=== PATIENT | male | born 1990 | race Caucasian/White ===

== ENCOUNTER 2023-08-28 00:36 | Inpatient (IN) ==
--- NOTE | 2023-08-28 01:17 | Emergency Department Note ---
Impression & Plan Suicide attempt by hanging, Suicidal behavior ED Provider Note CHIEF COMPLAINT: Attempted suicide, hanging HISTORY OF PRESENT ILLNESS: This 32-year-old male patient past medical history of depression presents to the emergency department after an attempted hanging. The patient states he tried to hang himself from a tree branch this evening. He states he [place] the [place], used a rope as a ligature. He states the tree branch broke just as he was ready to "pass out." Patient states he did urinate "a little." Patient states he has been taking about suicide for about the last month. He is not currently under any mental health treatment. Patient states he was admitted for inpatient psychiatric care when he was younger. He denies any alcohol ingestion or medicine overdose. REVIEW OF SYSTEMS: A review of systems was performed with positives and pertinent negatives listed in the history of present illness. 10 systems were reviewed and are otherwise negative. ALLERGIES: see below MEDICATIONS: see below PMH: see below SOCIAL HISTORY: see below DDx: Cervical spine injury, vascular injury, tracheal injury, mood disorder, toxic ingestion, among others PHYSICAL EXAM: Vital signs reviewed. General: Well-appearing 32 yo male, in no significant distress. HEENT: No scleral icterus, PERRLA, neck supple. Erythematous ligature eliza around the base of the neck. Bifurcated uvula Cardiovascular: Regular rate and rhythm, no extra sounds. Pulmonary: Clear to auscultation bilaterally, normal work of breathing. Abdomen: Soft, nontender, nondistended, positive bowel sounds. Musculoskeletal: Atraumatic, no peripheral edema. No step-off or deformity along cervical spine, generally nontender Neurologic: Patient awake alert and oriented x 3, speech is clear Psychiatric: Positive SI with attempt, negative HI Skin: Warm, dry, ligature eliza as above. EMERGENCY DEPARTMENT COURSE/MDM: This patient was evaluated and appeared to be in no significant distress. Patient's physical examination is consistent with ligature/attempted hanging. CT angiogram of the neck was performed and is negative per radiology. He has remained stable on room air. The patient was medically cleared and referred to the mental health hospice case manager for evaluation. The patient was then referred to [facility] for inpatient psychiatric care. Patient has been accepted to their unit and is awaiting a bed assignment. RADIOLOGY: CT angiogram of the neck per radiology is negative for acute findings. Please see the read below EKG: To my interpretation reveals normal sinus rhythm at [address] segments. QTc 374. No PVC, no PAC. No previous for comparison DISPOSITION: Admission Past Med/Surg History Social History Smoking Status: Never smoker Feels Safe at Home: Yes Gender Identity: Male Allergies Allergies Allergy/AdvReac Type Severity Reaction Status Date / Time No Known Allergies Allergy Unverified 08/28/23 01:54 Home Meds Home Medications Medication Instructions Recorded Confirmed No Known Home Medications 08/28/23 08/28/23 Results & Data (ED) Vital Signs Vital Signs - 24 hr 08/28/23 00:39 08/28/23 02:54 Temperature 36.9 C Temperature Source Temporal Artery Scan Pulse Rate 88 Pulse Rate [Finger] 62 Pulse Rhythm Regular Pulse Strength Normal Respiratory Rate 18 19 Respiratory Effort / Characteristics Non-Labored Spontaneous Non-Labored Respiratory Depth Normal Normal Respiratory Pattern Regular Blood Pressure 142/83 H Blood Pressure [Left Arm] 106/52 L Blood Pressure Mean 102 Blood Pressure Mean [Left Arm] 70 Pulse Oximetry 94 96 Oxygen Delivery Method Room Air Room Air Sepsis Recent Fever Within 48 Hours No Sepsis New/Unexplained Change in Mental Status N/A Sepsis Action Taken by Nursing No Action Required Home Medications Current Medication List: was personally reviewed by me Laboratory Data Attestation: I reviewed the patient's lab results. 08/28/23 00:55 08/28/23 00:55 Lab Results 08/28/23 08/28/23 Range/Units 00:55 00:56 WBC 12.27 H (4.8-10.8) K/ul RBC 5.78 (4.70-6.10) M/uL Hgb 16.7 (14.0-18.0) g/dl Hct 49.7 (42.0-52.0) % MCV 86.0 (80.0-100.0) fL MCH 28.9 (25.0-34.0) pg MCHC 33.6 (32.0-36.0) g/dL RDW Std Deviation 38.2 (36.4-46.3) fL RDW Coeff of Jd 12.3 (11.5-14.5) % Plt Count 320 (130-400) K/uL MPV 9.7 (9.4-12.4) fL Immature Gran % (Auto) 0.4 % Neut % (Auto) 59.3 % Lymph % (Auto) 26.5 % [place] % (Auto) 10.3 % Eos % (Auto) 2.9 % Baso % (Auto) 0.6 % Neut # (Auto) 7.29 H (1.40-6.50) K/uL Lymph # (Auto) 3.25 (1.20-3.40) K/uL [place] # (Auto) 1.26 H (0.11-0.59) K/uL Eos # (Auto) 0.35 (0.00-0.50) K/uL Baso # (Auto) 0.07 (0.00-0.20) K/uL Immature Gran # (Auto) 0.05 (0.01-0.20) K/uL Sodium 138 (136-145) mmol/L Potassium 3.8 (3.5-5.1) mmol/L Chloride 105 (98-107) mmol/L Carbon Dioxide 25 (21-32) mmol/L Anion Gap 8 (3-11) BUN 10 (6-23) mg/dl Creatinine 1.05 (0.6-1.4) mg/dl Est Cr Clr Drug Dosing 136.9 ml/min Est GFR ( Amer) 109.1 ml/min Est GFR (Non-Af Amer) 94.1 ml/min BUN/Creatinine Ratio 9.5 L (10-20) Glucose 97 (70-99(Fasting)) mg/dl Calcium 9.3 (8.6-10.3) mg/dl Total Bilirubin 0.4 (0.2-1.0) mg/dl AST 20 (13-39) U/L ALT 16 (7-52) U/L Alkaline Phosphatase 59 (34-104) U/L Total Protein 7.5 (6.0-8.3) gm/dl Albumin 4.5 (3.4-5.0) gm/dl Globulin 3.0 (2.5-4.0) gm/dl Albumin/Globulin Ratio 1.5 (0.9-2) TSH 1.602 (0.300-4.500) uIu/ml Urine Color Dark Yellow Urine Appearance Clear (Clear) Urine pH 5.5 (4.5-7.5) Ur Specific [place] 1.027 (1.000-1.030) Urine Protein Negative (Negative) Urine Glucose (UA) Negative (Negative) Urine Ketones Trace H (Negative) Urine Blood Negative (Negative) Urine Nitrite Negative (Negative) Urine Bilirubin Negative (Negative) Urine Urobilinogen Negative (Negative) Ur Leukocyte Esterase Negative (Negative) Salicylates < 3.0 L (3.0-30) mg/dl Urine Opiates Screen Neg (Neg) Ur Methadone, Qual Neg (Neg) Acetaminophen < 3 L (10-30) ug/ml Urine Barbiturates Neg (Neg) Ur Phencyclidine (PCP) Neg (Neg) U Amphetamin/Meth Scrn Neg (Neg) MDMA (Ecstasy) Screen Neg (Neg) U Benzodiazepines Scrn Neg (Neg) Ur Cocaine Metabolite Neg (Neg) U Marijuana (THC) Screen Pos H (Neg) Ethyl Alcohol mg/dL < 10.0 (<10.0) mg/dl SARS-CoV-2, RNA, NAAT NEGATIVE (NEGATIVE) Administered Medications Discontinued Medications Ioversol (Optiray 320 125ml) 125 ml IV ONCE ONE Stop: 08/28/23 01:49 Last Admin: 08/28/23 01:48 Dose: 115 ml Documented By: RAMÍREZ Imaging Data Radiologist's Impression: Neck CTA 08/28/23 01:08 Exam(s): CTA NECK With Contrast IV Amt: 115 ML OPTIRAY 320 EXAM: CT Angiography Neck With Intravenous Contrast CLINICAL HISTORY: Reason for exam: attempted hanging, ligature fletcher, hoarse. TECHNIQUE: Routine carotid CT angiography protocol was performed with intravenous contrast. NASCET criteria using the distal ICAs for comparison were used for evaluation of stenoses. Automated exposure control was utilized for the study. A dose lowering technique was utilized adhering to the principles of ALARA. MIP reconstructed images were created and reviewed. CONTRAST: Patient received 115 ML OPTIRAY 320 of IV contrast COMPARISON: None. FINDINGS: VASCULATURE: Right common carotid artery: Unremarkable. No occlusion or significant stenosis. No dissection. Right internal carotid artery: Unremarkable. Extracranial segment is patent with no occlusion or significant stenosis. No dissection. Right external carotid artery: Unremarkable. No occlusion. Right vertebral artery: Unremarkable. No occlusion or significant stenosis. No dissection. Left common carotid artery: Unremarkable. No occlusion or significant stenosis. No dissection. Left internal carotid artery: Unremarkable. Extracranial segment is patent with no occlusion or significant stenosis. No dissection. Left external carotid artery: Unremarkable. No occlusion. Left vertebral artery: Unremarkable. No occlusion or significant stenosis. No dissection. NECK: Bones/joints: Unremarkable. No acute fracture. Soft tissues: Unremarkable. Lung apices: Clear. CAROTID STENOSIS REFERENCE USING NASCET CRITERIA: % ICA stenosis = (1 - narrowest ICA diameter/diameter of distal cervical ICA) x 100. Mild - <50% stenosis. Moderate - 50-69% stenosis. Severe - 70-94% stenosis. Near occlusion - 95-99% stenosis. Occluded - 100% stenosis. IMPRESSION: Negative CTA neck. Electronically signed by: Chase Valencia M.D. 08/28/23 02:17 AM Discharge Plan Visit Data Chief Complaint: Mental Health Evaluation Stated Complaint: TRIED TO HANG HIMSELF AT 0010,WANTS 201 EVAL ED Provider: Stephy Roberts Discharge Problem: Suicide attempt by hanging, Suicidal behavior Forms Stand Alone Forms: [facility], Suicide Prevention Resources Prescriptions Prescriptions: No Action No Known Home Medications Referrals Referrals: PCP,NO [Primary Care Provider] - Discharge Problem: Suicide attempt by hanging Qualifiers: Encounter type: initial encounter Qualified Code(s): T71.162A - Asphyxiation due to hanging, intentional self-harm, initial encounter Suicidal behavior Qualifiers: Attempted self-injury: with attempted self-injury Qualified Code(s): T14.91XA - Suicide attempt, initial encounter
[2023-08-28 01:31] LABS: Appearance Urine Clear (Clear); Basophils # (auto) 0.07 K/uL (0.00-0.20); Basophils % (auto) 0.6 %; Bilirubin Urine Negative (Negative); Blood Urine Negative (Negative); Color Urine Dark Yellow; Eosinophils # (auto) 0.35 K/uL (0.00-0.50); Eosinophils % (auto) 2.9 %; Glucose Urine UA Negative (Negative); Hematocrit (blood only) 49.7 % (42.0-52.0); Hemoglobin 16.7 g/dl (14.0-18.0); Immature Granulocytes # (auto) 0.05 K/uL (0.01-0.20); Immature Granulocytes % (auto) 0.4 %; Ketones Urine Trace (Negative); Leukocyte Esterase Urine Negative (Negative); Lymphocytes # (auto) 3.25 K/uL (1.20-3.40); Lymphocytes % (auto) 26.5 %; Mean Corpuscular Hemoglobin 28.9 pg (25.0-34.0); Mean Corpuscular Hgb Conc 33.6 g/dL (32.0-36.0); Mean Platelet Volume 9.7 fL (9.4-12.4); Monocytes # (auto) 1.26 K/uL (0.11-0.59); Monocytes % (auto) 10.3 %; Neutrophils # (auto) 7.29 K/uL (1.40-6.50); Neutrophils % (auto) 59.3 %; Nitrite Urine Negative (Negative); Platelet Count 320 K/uL (130-400); Protein Urine Negative (Negative); RDW Coefficient of Variation 12.3 % (11.5-14.5); RDW Standard Deviation 38.2 fL (36.4-46.3); Red Blood Count 5.78 M/uL (4.70-6.10); Specific Gravity Urine 1.027 (1.000-1.030); Urobilinogen Urine Negative (Negative); White Blood Count 12.27 K/ul (4.8-10.8); pH Urine 5.5 (4.5-7.5)
[2023-08-28] MEDS ORDERED: OPTIRAY 320 125ml IV ONE (01:48)
[2023-08-28 01:49] LABS: Albumin Globulin Ratio 1.5 (0.9-2); Albumin Level 4.5 gm/dl (3.4-5.0); BUN Creatinine Ratio 9.5 (10-20); Bilirubin,Total 0.4 mg/dl (0.2-1.0); Calcium 9.3 mg/dl (8.6-10.3); Creatinine Clr Calc Pharmacy 136.9 ml/min; Est GFR (African American) 109.1 ml/min; Est GFR (Non-African American) 94.1 ml/min; Potassium 3.8 mmol/L (3.5-5.1); Total Protein 7.5 gm/dl (6.0-8.3)
[2023-08-28 01:58] LABS: Acetaminophen < 3 ug/ml (10-30); Amphetamines+Metham, Urine Neg (Neg); Barbiturates, Urine Neg (Neg); Benzodiazepine, Urine Neg (Neg); Cocaine, Urine Neg (Neg); MDMA (Ecstacy), Urine Neg (Neg); Marijuana, Urine Pos (Neg); Methadone, Urine Neg (Neg); Opiate, Urine Neg (Neg); Phencyclidine, Urine Neg (Neg); Salicylate < 3.0 mg/dl (3.0-30)
[2023-08-28 02:04] LABS: Thyroid Stimulating Hormone 1.602 uIu/ml (0.300-4.500)
--- NOTE | 2023-08-28 02:18 | CT Scan Report ---
Exam(s): CTA NECK With Contrast IV Amt: 115 ML OPTIRAY 320 EXAM: CT Angiography Neck With Intravenous Contrast CLINICAL HISTORY: Reason for exam: attempted hanging, ligature fletcher, hoarse. TECHNIQUE: Routine carotid CT angiography protocol was performed with intravenous contrast. NASCET criteria using the distal ICAs for comparison were used for evaluation of stenoses. Automated exposure control was utilized for the study. A dose lowering technique was utilized adhering to the principles of ALARA. MIP reconstructed images were created and reviewed. CONTRAST: Patient received 115 ML OPTIRAY 320 of IV contrast COMPARISON: None. FINDINGS: VASCULATURE: Right common carotid artery: Unremarkable. No occlusion or significant stenosis. No dissection. Right internal carotid artery: Unremarkable. Extracranial segment is patent with no occlusion or significant stenosis. No dissection. Right external carotid artery: Unremarkable. No occlusion. Right vertebral artery: Unremarkable. No occlusion or significant stenosis. No dissection. Left common carotid artery: Unremarkable. No occlusion or significant stenosis. No dissection. Left internal carotid artery: Unremarkable. Extracranial segment is patent with no occlusion or significant stenosis. No dissection. Left external carotid artery: Unremarkable. No occlusion. Left vertebral artery: Unremarkable. No occlusion or significant stenosis. No dissection. NECK: Bones/joints: Unremarkable. No acute fracture. Soft tissues: Unremarkable. Lung apices: Clear. CAROTID STENOSIS REFERENCE USING NASCET CRITERIA: % ICA stenosis = (1 - narrowest ICA diameter/diameter of distal cervical ICA) x 100. Mild - <50% stenosis. Moderate - 50-69% stenosis. Severe - 70-94% stenosis. Near occlusion - 95-99% stenosis. Occluded - 100% stenosis. IMPRESSION: Negative CTA neck. Electronically signed by: Chase Valencia M.D. 08/28/23 02:17 AM
--- NOTE | 2023-08-28 09:14 | Emergency Department Note ---
ED Visit Note The patient was taken in signout from Dr. Roberts at the change of shift. Please see that note for details. The patient was pending admission to [facility] voluntarily secondary to suicidal attempt. Patient was evaluated by [facility] liaison. During the process of admission on voluntary basis the patient refused. He did ask to speak to the physician. I did meet with him. The patient has no support system. He does not have a treating therapist or psychologist. Patient does not have a psychiatrist. He is refusing admission. Patient had an active furtherance on his suicidal thoughts and also admitted texting multiple people to tell them that he was attempting. Despite a significant amount of time discussing the options the patient is adamantly refusing further mental health evaluation or inpatient treatment. He is agitated but directable. Security was notified and came to the bedside. Discussed with senior insight manager at length. As the patient is no longer voluntary and had a significant event further management in the hospital will be necessary. A 302 petition was generated and delegate contacted. Warrant granted and the 302 was signed. Patient was accepted to [facility] for further management. .
[2023-08-28] MEDS ORDERED: MAGNESIUM HYDROXIDE SUSP 30 ML UDC PO PRN (11:18)
[2023-08-28] MEDS ORDERED: SODIUM CHLORIDE 0.65% NA SOLN 45 ML (OCEAN) PRN (11:18)
[2023-08-28] MEDS ORDERED: BISMUTH SUBSALICYLATE LIQD 236 ML PO PRN (11:18)
[2023-08-28] MEDS ORDERED: ALUMINUM/MAGNESIUM SUSP 30 ML UDC PO PRN (11:18)
[2023-08-28] MEDS ORDERED: ACETAMINOPHEN 325 MG TAB PO PRN (11:18)
[2023-08-28] MEDS ORDERED: hydrOXYzine HCl 25 MG TAB PO PRN (11:18)
[2023-08-28] MEDS: NICOTINE 21 MG/24 HR TDSY TD SCH (12:11)
--- NOTE | 2023-08-28 12:43 | Electrocardiogram Report ---
Test Reason : Blood Pressure : / mmHG Vent. Rate : 060 BPM Atrial Rate : 060 BPM P-R Int : 182 ms QRS Dur : 094 ms QT Int : 374 ms P-R-T Axes : 064 063 044 degrees QTc Int : 374 ms Normal sinus rhythm Normal ECG No previous ECGs available Confirmed by Johnathon Murphy ([id number]) on 08/28/2023 12:42:50 PM Referred By: REFERRED SELF Confirmed By:Johnathon Murphy
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
[2023-08-28] MEDS ORDERED: HYDROCORTISONE 1% OINT 30 GM TUBE EXT PRN (14:17)
[2023-08-28] MEDS: ESCITALOPRAM OXALATE 10 MG TAB PO SCH (14:22)
[2023-08-28 15:26] LABS: Folate (Folic Acid),Ser orPlas 18.57 ng/ml (>5.38)
[2023-08-28] MEDS: hydrOXYzine HCl 25 MG TAB PO PRN (21:22)
[2023-08-29] MEDS: NICOTINE 21 MG/24 HR TDSY TD SCH (08:26)
[2023-08-29] MEDS: ESCITALOPRAM OXALATE 10 MG TAB PO SCH (08:26)
--- NOTE | 2023-08-29 09:51 | Psychiatric Progress Note ---
Date of Service August 29, 2023 Impression / Recommendations Impression 32 y/o M with history of mood and anxiety symptoms, OUD in remission admitted after a serious and nearly-lethal attempt to hang himself. He endorses symptoms and provides symptoms consistent with PTSD and has been treated as if he may have a bipolar condition, though he denies history of obey or even depressive episodes that would clearly meet criteria for major depressive episodes. He is clearly psychiatrically unstable and requires admission for safety, stabilization, medication, and formulation of a plan including psychotherapy and other resources upon discharge. 08/29/2023: Reviewed with pt additional labs indicating a mild vitamin D insufficiency and recommended treatment approach. He reports no longer feeling hopeless, especially after staff discussed aftercare plans with him. He has tolerated addition of escitalopram 5 mg now for 2 doses and would like to proceed with planned increase to 10 mg tomorrow. We eager to discuss a range of concerns and thoughts and was quite voluble in this. This did not present to me as manic but rather as indicating loneliness and isolation. 08/28/2023: Pt was initially voluntary then was admitted involuntarily after overreacting when told he couldn't wear a hat on the unit and demanding to leave. Pt now asking to sign himself in. I've told him that nothing will change today but that I'd like him to give careful thought to whether he really wants treatment and would consider letting him sign himself in when we talk tomorrow. Risks and benefits of, and alternatives to, the use of escitalopram (Lexapro) for Post-Traumatic Stress Disorder symptoms were reviewed. This discussion included but was not limited to issues known potentially to be associated with use of such medication, especially at high doses or with longer use, including sedation, weight gain, GI side effects, or rarely induction or worsening of suicidal thoughts (which he experienced with sertraline in his early teens). Discussed the need to avoid abrupt cessation due to risk of discontinuation syndrome. The patient agreed to start a trial of escitalopram. (1) Post traumatic stress disorder (PTSD): (2) Suicide attempt by hanging: (3) Opioid use disorder in remission: (4) Vitamin D deficiency: Plan 08/29/2023: * increase escitalopram to 10 mg daily starting tomorrow * start cholecalciferol 50,000 IU weekly 08/28/2023: The patient was admitted to the [facility] ([facility] inpatient mental health unit) on q15 minute checks (behavioral with suicide precautions) for safety.The patient will participate in group, recreational, and milieu therapies and will be offered additional individual and family sessions as clinically appropriate. * start escitalopram 5 mg daily * In addition to the screening labs ordered in the ED, will order vitamin B12 level, folic acid level, 25-OH vitamin D level, ESR to rule out conditions more pertinent to psychiatric symptoms. Inventory Assets Strengths: presented voluntarily seeking treatment, fair insight, intelligent, employed Needs: safety and stabilization, medication adjustment, additional coping skills, outpatient services Suicide Risk Level Suicide Risk Level: High-Moderate (q15 min suicide checks) (denies current ideation but recent high-lethality attempt by hanging) Risk Factors Assessment Male: Yes : Yes Do You Have Access To A Gun?: No Health Problems: No Mental Health Diagnoses: Yes Substance Use Disorders: Yes (in remission) Previous Attempt: No Previous Psychiatric Hospitalization: Yes (as adolescent) Hopelessness: Yes Protective Factors Assessment : No Responsible for Young Children: No Employed: Yes Stable Relationships: No Supportive Family: No Good Rapport with Provider: Yes Interval History Identifying Information FRAN GARBER is a 32-year-old M who currently lives in [place] alone, has a history of opioid use disorder, and was admitted on 08/28/23 07:40 on a 302 involuntary commitment for suicide attempt by hanging. Chief Complaint "I'm glad I'm here". Review of Systems Sleep Information Total Hours of Sleep: 7.25 Meal Information Percent Meal Consumed - Dinner: 0 Subjective Subjective The patient was seen and assessed and interval progress reviewed in a multidisciplinary team meeting with the treatment team. For details, see the "Impression" section. Overall I spent a total of 57 minutes for this inpatient follow-up including review of chart records, review of test results, direct evaluation of the patient [id number], counseling the patient, reconciling and ordering medication, medication education with the patient, risk assessment, discussion during interdisciplinary treatment rounds, and documentation in the electronic health record. Physical Exam Psychiatric Orientation: alert, oriented to person, oriented to place, oriented to time and cooperative (superficially) Apperance: appropriately dressed and appropriately groomed Eye Contact: + fair eye contact Motor Behavior: + psychomotor agitation (mildly fidgety) Speech: normal rate/rhythm/volume of speech Affect: + constricted affect Mood: + anxious mood and + dysphoric mood; no irritable mood Thought Process: + tangential thought process and thought association intact Thought Content: reality based without delusions, + loneliness and + self deprecation; no hopelessness Suicidal Thoughts: denies suicidal thoughts (currently), denies suicidal plan (currently) and denies suicidal intent Homicidal Thoughts: denies homicidal thoughts Hallucinations: no auditory hallucinations and no visual hallucinations Cognition: recent memory grossly intact, remote memory grossly intact, attention grossly intact and language grossly intact Estimated Intelligence: average estimated intelligence Insight: + limited insight Judgment: + impaired judgement Vital Signs (Past 24 Hours) Last Vital Signs Temp 36.4 C 08/29/23 06:21 Pulse 78 08/29/23 06:23 Resp 16 08/29/23 06:21 BP 126/72 08/29/23 06:23 Pulse Ox 97 08/29/23 06:21 O2 Del Method Room Air 08/29/23 06:21 Results & Data ([facility]) Laboratory Results Laboratory Results - last 24 hr 08/28/23 14:19 ESR 15 Vitamin B12 471 25-OH Vitamin D Total 28.1 L Folate 18.57 Current Inpatient Medications Current Inpatient Medications: Current Inpatient Medications Acetaminophen (Acetaminophen 325 Mg Tab) 650 mg PO Q4H PRN PRN Reason: Headache or Minor Fever Stop: 09/27/23 11:17 Al Hydrox/Mg Hydrox/Simethicone (Aluminum/Magnesium Susp 30 Ml Udc) 30 ml PO Q4H PRN PRN Reason: GI Upset Stop: 09/27/23 11:17 Bismuth Subsalicylate (Bismuth Subsalicylate Liqd 236 Ml) 15 ml PO PRN PRN PRN Reason: Loose Stool Stop: 09/27/23 11:17 Escitalopram Oxalate (Escitalopram Oxalate 10 Mg Tab) 5 mg PO QAM LUIS Stop: 09/27/23 13:59 Last Admin: 08/29/23 08:26 Dose: 5 mg Hydrocortisone (Hydrocortisone 1% Oint 30 Gm Tube) 1 appln EXT TID PRN PRN Reason: Itching Stop: 09/27/23 14:16 Last Admin: 08/28/23 14:59 Dose: 1 appln Hydroxyzine HCl (Hydroxyzine Hcl 25 Mg Tab) 50 mg PO HSZ PRN PRN Reason: Insomnia Stop: 09/27/23 11:17 Last Admin: 08/28/23 21:22 Dose: 50 mg Hydroxyzine HCl (Hydroxyzine Hcl 25 Mg Tab) 25 mg PO Q4H PRN PRN Reason: Anxiety Stop: 09/27/23 11:17 Last Admin: 08/29/23 09:33 Dose: 25 mg Magnesium Hydroxide (Magnesium Hydroxide Susp 30 Ml Udc) 30 ml PO DAILY PRN PRN Reason: Constipation Stop: 09/27/23 11:17 Miscellaneous (Remove Nicoderm Patch) 1 each N/A DAILY@0859 [facility] Stop: 09/28/23 08:58 Last Admin: 08/29/23 08:27 Dose: 1 each Nicotine (Nicotine 21 Mg/24 Hr Tdsy) 21 mg TD QAM [facility] Stop: 09/27/23 11:29 Last Admin: 08/29/23 08:26 Dose: 21 mg Sodium Chloride (Sodium Chloride 0.65% Na Soln 45 Ml (Harmon)) 1 - 2 sprays NA PRN PRN PRN Reason: Nasal Dryness/Congestion Stop: 09/27/23 11:17 Mental Health & Subst Abuse Tx Therapist Name of Therapist: None Quality Assurance Analyst Name of Quality Assurance Analyst: None (2) Suicide attempt by hanging Encounter type: initial encounter Qualified Code(s): T71.162A - Asphyxiation due to hanging, intentional self-harm, initial encounter
[2023-08-29] MEDS ORDERED: ERGOCALCIFEROL 50,000 UNITS 1250 MCG CAP PO ONE (13:27)
[2023-08-29] MEDS: hydrOXYzine HCl 25 MG TAB PO PRN (21:21)
[2023-08-29 21:27] LABS: Marijuana Quant, GCMS Urine >5000 ng/mL (<5)
[2023-08-30] MEDS: NICOTINE 21 MG/24 HR TDSY TD SCH (08:43)
[2023-08-30] MEDS ORDERED: ESCITALOPRAM OXALATE 10 MG TAB PO SCH (09:00)
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
== END 2023-08-30 14:50 | disposition home or self-care (01) | DRG 885 ==
LOC: ED 00:36 → 3S 07:40